=== PATIENT | male | born 1995 | race Caucasian/White ===

== ENCOUNTER 2018-01-02 01:50 | Emergency (ER) | payer MEDICAID ==
[2018-01-02] MEDS ORDERED: TETANUS/DIPHTHERIA/PERTUSSIS 0.5 ML SYRINGE IM ONE (02:09)
--- NOTE | 2018-01-02 03:36 | ED Physician Documentation ---
PD HPI UPPER EXT INJURY - Stated complaint Stated Complaint: LT ARM LACERATION - Chief complaint Chief Complaint: Laceration PD PAST MEDICAL HISTORY - Past Medical History Past Medical History: No - Past Surgical History Past Surgical History: Yes - Present Medications Home Medications: Ambulatory Orders Medication Instructions Recorded Confirmed No Known Home Medications 01/02/18 01/02/18 - Allergies Allergies/Adverse Reactions: Allergies Allergy/AdvReac Type Severity Reaction Status Date / Time No Known Drug Allergies Allergy Verified 01/02/18 02:10 - Social History Does the pt smoke?: Yes Smoking Status: Current every day smoker Does the pt drink ETOH?: No Does the pt have substance abuse?: No - Immunizations Immunizations are current?: No Immunizations: TDAP >10years/unknown - POLST Patient has POLST: No Results - Vitals Vitals: Vital Signs - 24 hr 01/02/18 01/02/18 01:57 03:25 Temperature 36.4 C L Heart Rate 63 68 Respiratory 15 16 Rate Blood Pressure 107/91 H 116/70 O2 Saturation 99 100 Oxygen O2 Source Room air PD MEDICAL DECISION MAKING - ED course ED course: I went to see patient but he was no longer in the room and did not subsequently return. LWBS - Sepsis Event Vital Signs: Vital Signs - 24 hr 01/02/18 01/02/18 01:57 03:25 Temperature 36.4 C L Heart Rate 63 68 Respiratory 15 16 Rate Blood Pressure 107/91 H 116/70 O2 Saturation 99 100 Oxygen O2 Source Room air Departure - Departure Disposition: ED Left Without Being Seen Discharge Date/Time: 01/02/18 03:40
[2018-01-02 03:50] VITALS: BP 116/70
== END 2018-01-02 03:40 | disposition left against medical advice (07) ==
LOC: ED 01:50
DX: Z53.21 Procedure and treatment not carried out due to patient leaving prior to being seen by health care provider (principal); S41.112A Laceration without foreign body of left upper arm, initial encounter; F17.200 Nicotine dependence, unspecified, uncomplicated
CPT/HCPCS: 99283